=== PATIENT | male | born 2000 | race Caucasian/White ===

== ENCOUNTER 2022-01-22 06:57 | Emergency (ER) | payer SELFPAY ==
[~2022-01-22] VITALS: Ht 172.7 cm; Wt 69.3 kg
[2022-01-22 07:01] VITALS: BP 124/86
[2022-01-22] MEDS ORDERED: CEPH500C2 PO (09:00)
[2022-01-22] MEDS ORDERED: SULF1TAB48 PO (09:00)
== END 2022-01-22 09:30 | disposition home or self-care (01) ==
LOC: ER 06:57
DX: L03.115 Cellulitis of right lower limb (principal); R03.0 Elevated blood-pressure reading, without diagnosis of hypertension
CPT/HCPCS: 99283